=== PATIENT | female | born 1970 | race Caucasian/White ===

== ENCOUNTER 2018-01-22 19:22 | Emergency (ER) | payer SELFPAY ==
[~2018-01-22] VITALS: Ht 167.6 cm; Wt 68.0 kg
[2018-01-22] MEDS ORDERED: ONDANSETRON 4 MG TAB.RAPDIS ONE (19:59)
--- NOTE | 2018-01-22 20:03 | NUR ---
VERBAL ORDER FROM HEDY KIM-ROD[facility] 4MG ZOFRAN ODT.
[2018-01-22] MEDS ORDERED: ONDANSETRON 4 MG TAB.RAPDIS SL ONE (20:30)
--- NOTE | 2018-01-22 20:44 | NUR ---
PT. VERBALIZED UNDERSTANDING OF AFTERCARE INSTRUCTIONS.Patient discharged to home in stable condition. Written and verbal after care instructions given. Patient verbalizes understanding of instruction.
[2018-01-22 20:46] VITALS: BP 120/60
== END 2018-01-22 20:48 | disposition home or self-care (01) ==
LOC: ER 19:25
DX: T73.2XXA Exhaustion due to exposure, initial encounter (principal); R11.0 Nausea; X58.XXXA Exposure to other specified factors, initial encounter
CPT/HCPCS: 99283; A4606; Q0162; Z7610

== ENCOUNTER 2018-10-06 13:56 | Emergency (ER) | payer MEDICAID, MEDICARE ==
[~2018-10-06] VITALS: Ht 162.6 cm; Wt 61.2 kg
[2018-10-06 15:01] VITALS: BP 153/97
[2018-10-06] MEDS ORDERED: LIDOCAINE 1% INJ 50 ML MDV IJ ONE (15:22)
[2018-10-06] MEDS ORDERED: TDAP [DIPH/PERTUSSIS/TET] 0.5 ML VIAL IM ONE (15:30)
[2018-10-06] MEDS ORDERED: LIDOCAINE HCL/PF 1% 30 ML VIAL TP ONE (15:30)
[2018-10-06] MEDS ORDERED: SULFAMETH/TRIMETH 800/160 MG 1 UDTAB TABLET PO ONE ×2 (16:30→16:46)
== END 2018-10-06 17:09 | disposition home or self-care (01) ==
LOC: ER 13:59
DX: N75.1 Abscess of Bartholin's gland (principal)
CPT/HCPCS: 56420; 99283; A4606; A6402; A6407; J3490 ×2

== ENCOUNTER 2021-01-02 13:39 | Emergency (ER) | payer MEDICAID, MEDICARE, OTHER ==
[~2021-01-02] VITALS: Ht 167.6 cm; Wt 65.8 kg
[2021-01-02] MEDS ORDERED: HYDROCODONE/APAP 5/325MG TABLET PO ONE ×2 (14:00→15:00)
[2021-01-02] MEDS ORDERED: HYDROCODONE/APAP 5/325MG TABLET ONE ×2 (14:06→15:03)
[2021-01-02] MEDS ORDERED: HYDR-4303 PO (14:48)
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
--- NOTE | 2021-01-02 15:15 | NUR ---
Patient discharged to home in stable condition. Written and verbal after care instructions given. Patient verbalizes understanding of instruction.
[2021-01-02 15:16] VITALS: BP 142/76
== END 2021-01-02 15:16 | disposition home or self-care (01) ==
LOC: ER 13:55
DX: S62.232A Other displaced fracture of base of first metacarpal bone, left hand, initial encounter for closed fracture (principal); Z79.899 Other long term (current) drug therapy; W18.39XA Other fall on same level, initial encounter; Y93.89 Activity, other specified; Y92.89 Other specified places as the place of occurrence of the external cause; Y99.8 Other external cause status
CPT/HCPCS: 73130-TC

== ENCOUNTER 2021-10-30 22:12 | Emergency (ER) | payer OTHER ==
[~2021-10-30] VITALS: Ht 167.6 cm; Wt 67.6 kg
[~2021-10-30 22:12] MED LIST: HYDR-4303 PO
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
--- NOTE | 2021-10-30 22:54 | NUR ---
LAB AT BEDSIDE
[2021-10-30 23:00] VITALS: BP 142/77
--- NOTE | 2021-10-30 23:01 | NUR ---
COVID SWAB COLLECTED AND SENT TO LAB
[2021-10-30 23:08] LABS: BASOPHILS % (AUTO) 0.8 % (0.0-2.0); HEMATOCRIT 40 % (33-45); HEMOGLOBIN 14.1 g/dL (11.5-14.8); LYMPHOCYTES # (AUTO) 2.8 K/uL (0.8-4.8); LYMPHOCYTES % (AUTO) 45.9 % (20.0-44.0); MEAN CORPUSCULAR HGB CONC 35 g/dl (31.0-36.0); MEAN CORPUSCULAR VOLUME 89 fL (82-100); MONOCYTES # (AUTO) 0.3 K/uL (0.1-1.30); MONOCYTES % (AUTO) 5.5 % (2.0-12.0); NEUTROPHILS # (AUTO) 2.7 K/uL (1.8-8.9); NEUTROPHILS % (AUTO) 42.8 % (43.0-81.0); PLATELET COUNT (AUTO) 334 K/uL (150-450); RED BLOOD CELL COUNT(AUTO) 4.53 MIL/uL (4.0-5.2); WHITE BLOOD COUNT (AUTO) 6.2 K/uL (4.3-11.0)
--- NOTE | 2021-10-30 23:18 | NUR ---
URINE COLLCETED AND SENT TO LAB
[2021-10-30 23:23] LABS: ALBUMIN 3.6 g/dL (3.4-5.0); BILIRUBIN,DIRECT 0.1 mg/dL (0.0-0.2); BILIRUBIN,TOTAL 0.1 mg/dL (0.2-1.0); CALCIUM, SERUM 8.4 mg/dL (8.5-10.1); CREATININE 0.8 mg/dL (0.6-1.3); POTASSIUM 3.2 mmol/L (3.5-5.1)
[2021-10-30 23:27] LABS: BILIRUBIN,URINE NEGATIVE (NEGATIVE); COLOR,URINE YELLOW (YELLOW); LEUKOCYTE ESTERASE ,URINE TRACE (NEGATIVE); NITRITE, URINE NEGATIVE (NEGATIVE); PROTEIN,URINE NEGATIVE (NEGATIVE); UGLUCOSE NEGATIVE (NEGATIVE); UROBILINOGEN,URINE 0.2 EU/dL (0.2)
[2021-10-30] MEDS ORDERED: POTASSIUM CHLORIDE 20 MEQ TAB.PRT.SR PO ONE (23:30)
[2021-10-30 23:40] LABS: RBC,URINE 0-2 /HPF (0-2); SQUAMOUS EPITHELIAL CELL,UR Many /HPF (None Seen); WBC,URINE 0-2 /HPF (0-3)
[2021-10-30 23:41] LABS: BACTERIA,URINE Few /HPF (None Seen); MUCUS,URINE Moderate /LPF (None Seen)
[2021-10-31] MEDS ORDERED: POTASSIUM CHLORIDE 20 MEQ TAB.PRT.SR PO ONE (01:14)
--- NOTE | 2021-10-31 05:00 | NUR ---
PATIENT NOTED NO LONGER + SI
--- NOTE | 2021-10-31 06:25 | NUR ---
Patient discharged to home in stable condition. Written and verbal after care instructions given. Patient verbalizes understanding of instruction.
== END 2021-10-31 06:26 | disposition home or self-care (01) ==
LOC: ER 22:25
DX: F10.129 Alcohol abuse with intoxication, unspecified (principal); Y90.7 Blood alcohol level of 200-239 mg/100 ml; R45.851 Suicidal ideations; E87.6 Hypokalemia; Z20.822 Contact with and (suspected) exposure to COVID-19
CPT/HCPCS: 36415; 80048-TC; 80076-TC; 81001; 85025-TC; C9803; G0480

== ENCOUNTER 2023-09-06 13:36 | Emergency (ER) | payer OTHER ==
[~2023-09-06] VITALS: Ht 162.6 cm; Wt 68.9 kg
[~2023-09-06 13:36] MED LIST changes: +KETO10TA2 PO; +TRAM-351 PO
[2023-09-06 14:16] VITALS: BP 200/100; TEMP 98; O2SAT 100
[2023-09-06] MEDS ORDERED: IBUPROFEN 600 MG TABLET ONE (14:45)
[2023-09-06] MEDS: IBUPROFEN 600 MG TABLET PO ONE (14:52)
== END 2023-09-06 15:38 | disposition home or self-care (01) ==
LOC: ER 13:41
DX: M25.572 Pain in left ankle and joints of left foot (principal); R07.81 Pleurodynia; F32.A Depression, unspecified; Z60.2 Problems related to living alone; W01.0XXA Fall on same level from slipping, tripping and stumbling without subsequent striking against object, initial encounter; Y93.89 Activity, other specified; Y92.89 Other specified places as the place of occurrence of the external cause; Y99.8 Other external cause status
CPT/HCPCS: 71100-TC; 73502; 73610-TC; 73630-TC